=== PATIENT | male | born 1965 | race American Indian/Alaskan Native ===

== ENCOUNTER 2022-03-17 11:31 | Outpatient (CLI) | payer OTHER ==
--- NOTE | 2022-03-17 14:19 | XRay Report ---
Right knee 3 views INDICATION: Knee pain FINDINGS: There is tricompartmental degenerative change. Joint space narrowing is seen throughout mos t significant at patellofemoral joint medial joint compartment. Small joint effusion is seen. IMPRESSION: Tricompartmental degenerative change Signer Name: Dewayne Womack MD Signed: 03/17/2022 2:14 PM Workstation Name: [id number] [facility]
--- NOTE | 2022-03-17 14:37 | XRay Report ---
LUMBAR SPINE 3 VIEWS INDICATION / CLINICAL INFORMATION: BACK PAIN. COMPARISON: None available. FINDINGS: VERTEBRAE: No acute fracture. No significant malalignment. DISC SPACES / FACET JOINTS:There is moderate degenerative disc disease scattered throughout the lumba r spine, most pronounced at L5-S1 and L4-L5. PARASPINAL SOFT TISSUES:No significant abnormality. ADDITIONAL FINDINGS: None. Signer Name: Lonny Beltran DO Signed: 03/17/2022 2:33 PM Workstation Name: [employer]
== END 2022-03-17 11:32 | disposition home or self-care (01) ==
LOC: XRAY 11:31
PROVIDERS: ATTEND Internal Medicine
DX: M51.37 Other intervertebral disc degeneration, lumbosacral region (principal); M17.11 Unilateral primary osteoarthritis, right knee
CPT/HCPCS: 72100